=== PATIENT | female | born 1950 | race Caucasian/White ===

== ENCOUNTER 2021-01-03 15:31 | Emergency (ER) | payer MEDICARE, OTHER ==
[~2021-01-03] VITALS: Ht 167.6 cm; Wt 74.4 kg
[2021-01-03 16:13] LABS: BASOPHILS # (AUTO) 0.1 (0.0-0.1); BASOPHILS % 0.6 % (0.0-1.0); EOSINOPHILS # (AUTO) 0.2 (0.0-0.4); HEMATOCRIT 39.3 % (34.2-44.1); HEMOGLOBIN 12.5 g/dL (12.0-16.0); LYMPHOCYTES # (AUTO) 1.6 (1.0-3.2); MEAN CORPUSCULAR HEMOGLOBIN 25.3 pg (28-32); MEAN CORPUSCULAR HGB CONC 31.8 g/dL (31-35); MEAN CORPUSCULAR VOLUME 79.4 fL (81-99); MONOCYTES % 8.5 % (4.4-11.3); NEUTROPHILS % 75.1 % (38.7-80.0); PLATELET COUNT 322 x10e3/uL (140-360); RED BLOOD COUNT 4.95 x10e6/uL (3.6-5.1); RED CELL DISTRIBUTION WIDTH 14.6 % (11.7-14.4)
[2021-01-03 16:19] LABS: INR 0.9; PROTHROMBIN TIME 12.7 seconds (11.9-14.5)
[2021-01-03 16:28] LABS: ALANINE AMINOTRANSFERASE 11 IU/L (0-55); ALBUMIN 3.5 g/dL (3.5-5.0); ALKALINE PHOSPHATASE 56 IU/L (40-150); ANION GAP 15.8 mmol/L (8-16); BLOOD UREA NITROGEN 14 mg/dL (7-26); BUN/CREATININE RATIO 16 (6-25); CALCIUM 9.4 mg/dL (8.4-10.2); CARBON DIOXIDE 22 mmol/L (22-29); CHLORIDE 103 mmol/L (98-107); CREATININE, SERUM 0.89 mg/dL (0.57-1.11); EST GLOMERULAR FILTRATION RATE > 60 ML/MIN (60-); GLUCOSE 167 mg/dL (74-118); POTASSIUM 3.8 mmol/L (3.5-5.1); SODIUM 137 mmol/L (136-145)
[2021-01-03 18:46] VITALS: BP 170/69
== END 2021-01-03 18:48 | disposition home or self-care (01) ==
LOC: ER 15:45
DX: R40.4 Transient alteration of awareness (principal); I10 Essential (primary) hypertension; E11.9 Type 2 diabetes mellitus without complications; Z88.8 Allergy status to other drugs, medicaments and biological substances; Z91.041 Radiographic dye allergy status
CPT/HCPCS: 36415; 70450; 80053; 83880; 84484; 85025; 85610; 93005; 99284

== ENCOUNTER 2025-06-11 15:08 | Inpatient (IN) | payer MEDICARE ==
[~2025-06-11] VITALS: Ht 167.6 cm; Wt 67.6 kg
[2025-06-11 16:00] VITALS: TEMP 97.8
[2025-06-11] MEDS ORDERED: SODIUM CHLORIDE FLUSH 10 ML SYR IV PRN (16:30)
[2025-06-11 16:38] LABS: BASOPHILS % 0.3 % (0.0-1.0); EOSINOPHILS % 0.4 % (0.0-6.0); LYMPHOCYTES % 11.5 % (18.0-39.1); MONOCYTES % 9.7 % (4.4-11.3); NEUTROPHILS % 77.2 % (38.7-80.0); RED CELL DISTRIBUTION WIDTH 14.0 % (11.7-14.4)
[2025-06-11 16:50] LABS: EST GLOMERULAR FILTRATION RATE 54.0 ML/MIN (>=60)
[2025-06-11] MEDS ORDERED: SODIUM CHLORIDE FLUSH 10 ML SYR INJ PRN (17:45)
[2025-06-11] MEDS ORDERED: ONDANSETRON HCL INJ 2MG/ML 2ML 2 MG/ML VIAL IV PRN ×2 (17:45→20:30)
[2025-06-11 19:30] VITALS: PULSE 80; RESP 18
[2025-06-11 20:30] VITALS: BP 150/59; PULSE 79; RESP 18; TEMP 97.6; O2SAT 100
[2025-06-11] MEDS ORDERED: DEXTROSE 50% SYRINGE 50 ML IV PRN (20:30)
[2025-06-11] MEDS ORDERED: ACETAMINOPHEN 325 MG TAB PO PRN (20:30)
[2025-06-11] MEDS ORDERED: CLONIDINE HCL 0.1 MG TAB PO PRN (20:30)
[2025-06-11] MEDS: INSULIN LISPRO 100 UNIT/1 ML 3ML VIAL SQ SCH (20:39)
[2025-06-11 21:00] VITALS: BP 150/59; PULSE 79; RESP 18; TEMP 97.6; O2SAT 100
[2025-06-11] MEDS: POTASSIUM CHLORIDE 20 MEQ TAB CR PO STA (22:00)
[2025-06-11] MEDS: ATORVASTATIN 20 MG TAB PO SCH (22:00)
[2025-06-11] MEDS: POTASSIUM CHLORIDE 20MEQ/100ML 200 ML IV ONE (22:01)
[2025-06-11] MEDS: SODIUM CHLORIDE 0.9% 250ML 250 ML ONE (23:11)
[2025-06-12] MEDS ORDERED: XIGDUO XR 5 MG1 EAC1 PO (00:03)
[2025-06-12] MEDS ORDERED: BUMETANIDE1 MG PO (00:03)
[2025-06-12] MEDS ORDERED: HUMALOG MI100 UNIT/2 SQ (00:03)
[2025-06-12] MEDS ORDERED: OZEMPIC2 MG/0.75 SC (00:03)
[2025-06-12] MEDS ORDERED: VIVISCAL (00:03)
[2025-06-12] MEDS ORDERED: L-LYSINE500 M1 PO (00:03)
[2025-06-12] MEDS ORDERED: BYSTOLIC10 MG PO (00:03)
[2025-06-12] MEDS ORDERED: ATORVASTATIN CA20 MG PO (00:03)
[2025-06-12] MEDS ORDERED: GLIMEPIRIDE2 MG PO (00:03)
[2025-06-12] MEDS ORDERED: MONTELUKAST SOD10 MG PO (00:03)
[2025-06-12] MEDS ORDERED: AMLODIPINE BESY10 MG PO (00:03)
[2025-06-12] MEDS ORDERED: LUTEIN6 MG PO (00:03)
[2025-06-12] MEDS ORDERED: ASPIRIN81 MG PO (00:03)
[2025-06-12] MEDS ORDERED: ENTRESTO 24 MG1 EACH PO (00:03)
[2025-06-12] MEDS ORDERED: PREDNISONE5 MG PO (00:14)
[2025-06-12] MEDS ORDERED: TIZANIDINE HCL2 MG PO (00:14)
[2025-06-12 00:26] VITALS: BP 151/66; PULSE 79; RESP 18; TEMP 97.7; O2SAT 97
[2025-06-12 01:11] LABS: LEUKOCYTE ESTERASE ,URINE 1+ (NEGATIVE); PROTEIN,URINE DIPSTICK NEGATIVE (NEGATIVE); URINE UROBILINOGEN 0.2 mg/dL (0.2 - 1)
[2025-06-12 01:17] LABS: EPITHELIAL CELLS,URINE FEW /LPF; WBC,URINE (MAN) 21-50 /HPF (0-5)
[2025-06-12 04:40] VITALS: BP 143/66; PULSE 80; RESP 18; TEMP 97.1; O2SAT 97
[2025-06-12 07:28] LABS: BASOPHILS % 0.6 % (0.0-1.0); EOSINOPHILS % 0.7 % (0.0-6.0); LYMPHOCYTES % 18.7 % (18.0-39.1); MONOCYTES % 10.2 % (4.4-11.3); NEUTROPHILS % 69.0 % (38.7-80.0); RED CELL DISTRIBUTION WIDTH 14.1 % (11.7-14.4)
[2025-06-12 07:50] LABS: EST GLOMERULAR FILTRATION RATE 71.0 ML/MIN (>=60)
[2025-06-12 08:00] VITALS: BP 146/54; PULSE 79; RESP 17; TEMP 98.6; O2SAT 97
[2025-06-12] MEDS: PANTOPRAZOLE SOD 40 MG TABEC PO SCH (08:59)
[2025-06-12] MEDS: AMLODIPINE BESYLATE 10 MG TAB PO SCH (09:00)
[2025-06-12 10:17] LABS: EST GLOMERULAR FILTRATION RATE 71.0 ML/MIN (>=60)
[2025-06-12 12:00] VITALS: BP 153/58; PULSE 78; RESP 17; TEMP 98.5; O2SAT 100
[2025-06-12 16:00] VITALS: BP 133/63; PULSE 85; RESP 17; TEMP 98.6; O2SAT 98
[2025-06-12] MEDS: POTASSIUM CHLORIDE 20MEQ/100ML 100 ML IV SCH (16:21)
[2025-06-12 20:00] VITALS: BP_SYST 133; BP_DIAS 60; BP_DIAS 63; PULSE 80; PULSE 85; RESP 17; RESP 18; TEMP 98.4; TEMP 98.6; O2SAT 100; O2SAT 98
[2025-06-13] VITALS (7 sets, daily range): BP systolic 127–157; BP diastolic 56–66; PULSE 84–86; RESP 18; TEMP 97.9–98.9; O2SAT 99–100
[2025-06-13 06:15] LABS: BASOPHILS % 0.5 % (0.0-1.0); EOSINOPHILS % 0.7 % (0.0-6.0); LYMPHOCYTES % 17.8 % (18.0-39.1); MONOCYTES % 9.9 % (4.4-11.3); NEUTROPHILS % 70.1 % (38.7-80.0); RED CELL DISTRIBUTION WIDTH 14.0 % (11.7-14.4)
[2025-06-13 07:05] LABS: EST GLOMERULAR FILTRATION RATE 64.0 ML/MIN (>=60)
[2025-06-13] MEDS ORDERED: ONDANSETRON HCL 4 MG ORAL DISINTEGRATING TAB PO PRN (14:30)
[2025-06-13] MEDS ORDERED: COLLAGENASE 5 GM TUBE TOP SCH (15:00)
[2025-06-13] MEDS: MUPIROCIN 2% OINT 22 GM TUBE TOP SCH (16:57)
[2025-06-13] MEDS: COLLAGENASE 5 GM TUBE TOP SCH (16:57)
[2025-06-13 17:36] LABS: EST GLOMERULAR FILTRATION RATE 62.0 ML/MIN (>=60)
[2025-06-14] VITALS: BP 145/55; PULSE 84; RESP 18; TEMP 97.8; O2SAT 98
[2025-06-14 04:00] VITALS: BP_SYST 145; BP_SYST 152; BP_DIAS 53; BP_DIAS 55; PULSE 84; PULSE 86; RESP 18; TEMP 97.8; TEMP 98.7; O2SAT 100; O2SAT 98
[2025-06-14] MEDS: MAGNESIUM SULFATE 2GM/50ML 50 ML IV ONE (05:24)
[2025-06-14 05:58] LABS: BASOPHILS % 0.5 % (0.0-1.0); EOSINOPHILS % 1.0 % (0.0-6.0); LYMPHOCYTES % 17.9 % (18.0-39.1); MONOCYTES % 10.4 % (4.4-11.3); NEUTROPHILS % 69.4 % (38.7-80.0); RED CELL DISTRIBUTION WIDTH 14.1 % (11.7-14.4)
[2025-06-14 06:44] LABS: EST GLOMERULAR FILTRATION RATE 58.0 ML/MIN (>=60)
[2025-06-14 08:17] VITALS: BP 161/61; PULSE 80; RESP 18; TEMP 97.9; O2SAT 100
[2025-06-14 09:45] VITALS: BP 161/61; PULSE 80; RESP 18; TEMP 97.9; O2SAT 100
[2025-06-14 12:37] VITALS: BP 156/58; PULSE 79; RESP 18; TEMP 97.6; O2SAT 100
[2025-06-14 16:22] VITALS: BP 162/60; PULSE 85; RESP 18; TEMP 98.1; O2SAT 99
== END 2025-06-14 16:30 | disposition home or self-care (01) | DRG 690 ==
LOC: ER 16:13 → ERHOLD 17:32 → MED/SURG3 18:32 → OBSVTOIN 06-13 16:34
PROVIDERS: ADMIT Internal Medicine; ATTEND Internal Medicine
DX: N39.0 Urinary tract infection, site not specified (principal); N17.9 Acute kidney failure, unspecified; E11.22 Type 2 diabetes mellitus with diabetic chronic kidney disease; I12.9 Hypertensive chronic kidney disease with stage 1 through stage 4 chronic kidney disease, or unspecified chronic kidney disease; R55 Syncope and collapse; E86.0 Dehydration; E87.6 Hypokalemia; E78.5 Hyperlipidemia, unspecified; E83.42 Hypomagnesemia; N18.9 Chronic kidney disease, unspecified; D63.1 Anemia in chronic kidney disease; I35.0 Nonrheumatic aortic (valve) stenosis; R01.1 Cardiac murmur, unspecified; R53.81 Other malaise; Z79.4 Long term (current) use of insulin; Z79.52 Long term (current) use of systemic steroids; Z79.82 Long term (current) use of aspirin; Z79.84 Long term (current) use of oral hypoglycemic drugs; Z91.041 Radiographic dye allergy status; Z88.1 Allergy status to other antibiotic agents; Z88.8 Allergy status to other drugs, medicaments and biological substances; Z82.49 Family history of ischemic heart disease and other diseases of the circulatory system
CPT/HCPCS: 36415; 71045; 80048; 80053; 81001; 82550; 83735; 83880; 84484; 85025; 87086; 87186; 93005; 93306; 94760; 96372; 99252; 99284; G0378; J2470; J2543; J3475; J3480; J7050